=== PATIENT | female | born 1990 ===

== ENCOUNTER 2017-08-31 01:17 | Emergency (ER) | payer MEDICAID, OTHER ==
[2017-08-31 07:09] VITALS: BP 129/80; PULSE 67; RESP 16; TEMP 98.7
--- NOTE | 2017-08-31 07:40 | OBDCSUM ---
Datetime: 08/31/2017 02:20 Discharged to, Provider: Home Follow up at, Provider: [facility] Disch Instr Activity: Normal activity Disch Instr Diet: Regular Discharge Instructions, Provider: Routine instructions given Discharge Diagnosis, Provider: False Labor - Undelivered Discharge Time: 08/31/2017 02:26 Follow up in weeks, Provider: 09/02/2017 Disch Referrals: None Contraception discussed, Prov: Yes Disch Activity Restrictions: No lifting
--- NOTE | 2017-08-31 07:41 | OBHP ---
Datetime: 08/31/2017 02:23 IP Adm Impression: Term, intrauterine IP Admit Plan: Discharge home Admit Comment, IP Provider: 26 yo at 37.6 weeks confirmed by u/s at 12.1w, with an DALI of 09/15 presents to [facility] with complaints of sporadic abdominal and back pain, crampy in nature with cramp s occurring every 15 minutes. Denies vaginal bleeding, loss of fluid, regular contractions. Feels fet us moving. Last sexual activity 2 days ago. Denies any problems with this . Past OBhx: none; . Past medical hx: denies Past surg hx: denies Social hx: denies tobacco, alcohol, drug use Meds: vitamins Allergies: NKDA care: [facility]. Last visit 08/26. Next visit 09/02. ROS: denies chest pain, shortness of breath, nausea, vomiting, diarrhea, GI upset, headache, dizzi ness. PE: BP: 138/85. HR 76. FHR: 125 General: AAOx3, not in acute distress CV: S1,S2, regular rate and rhythm Abd: gravid, +BS Back: negative for CVA tenderness bilaterally Extremities: no edema, no pain on palpation Pelvic exam: cervix long, thick, closed Assessment: 26 yo with IUP at 37.6 weeks. No specific contractions seen on monitor. Not in ac tive labor at this time. Reassuring FHR. Plan: Discharge home with labor precautions- explained to pt to return to hospital if there is vaginal b leeding, loss of fluid, decreased movement, or contractions that occur closer together and are stronger. Pt strongly encouraged to attend next scheduled clinic appointment. [id number] Addendum by Dr. Richmond: Tonjan evaluated independently and I agree with the above. Patient is a @ 37.6 wks with abdominal contractions, no vaginal bleeding, no leaking, +FM. Patient has no antep artum issues, no medical problems. Closed on exam, [id number] Cat-I, valerie q 8 mins. Patient ruled out for early labor, no other pertinent positive symptoms. Dischraged home with labor precautions Pelvic Type - PN: Not Done Extremities - PN: Normal Abdomen - PN: Normal Back - PN: Normal Breast - PN: Not Done Lungs - PN: Normal Heart - PN: Normal Thyroid - PN: Not Done Neurologic - PN: Normal HEENT - PN: Normal General - PN: Normal FHR - Baseline A Provider: 125 Comments, ACOG Physical Exam: cervix closed, thick. Gestation - Est Wks by US: 37.6 IP Hx Assessment: The History has been Reviewed and is Current EGA AdmitDate IP: 37.6 Vital Signs Provider: Reviewed; Within Normal Limits IP Chief Complaint: Uterine contractions NICHD Variability Prov Fetus A: Moderate 6-25bpm NICHD Accel Fetus A IP Provider: [id number] FHR Category Provider Fetus A: Category I NICHD Decel Fetus A IP Provider: None Dilatation, Provider: 0 Genitourinary Exam: Normal DTRs - PN: Not Done
== END 2017-08-31 02:30 | disposition home or self-care (01) ==
LOC: H.EROB2 01:17
DX: O47.1 False labor at or after 37 completed weeks of gestation (principal); Z3A.37 37 weeks gestation of pregnancy

== ENCOUNTER 2017-09-17 17:13 | Emergency (ER) | payer MEDICAID, OTHER ==
--- NOTE | 2017-09-17 19:13 | OBHP ---
Datetime: 09/17/2017 19:02 IP Adm Impression: Term, intrauterine IP Admit Plan: Observation/Evaluation; Discharge home Admit Comment, IP Provider: Patient is a @ 40.2 wks with pain. Patient denies VB, leaking, +FM, +ctxns. Patient denies any other complaints. VE= /-3. FHR= 125 mod jonah, +accels, no decels. TOCO = no contractions. Patient ruled out for labor. Labor precautions given, F/U in clinic 09/20 Pelvic Type - PN: Adequate Extremities - PN: Normal Abdomen - PN: Normal Back - PN: Normal Breast - PN: Normal Lungs - PN: Normal Heart - PN: Normal Thyroid - PN: Normal Neurologic - PN: Normal HEENT - PN: Normal General - PN: Normal FHR - Baseline A Provider: 125 Contraction Comments Provider: no contractions EGA AdmitDate IP: 40.2 Vital Signs Provider: Reviewed; Within Normal Limits IP Chief Complaint: Uterine contractions NICHD Variability Prov Fetus A: Moderate 6-25bpm NICHD Accel Fetus A IP Provider: [id number] NICHD Decel Fetus A IP Provider: None Dilatation, Provider: 1 Effacement, Provider: 50 Station, Provider: -3 Genitourinary Exam: Normal DTRs - PN: Normal
--- NOTE | 2017-09-17 19:15 | OBDCSUM ---
Datetime: 09/17/2017 18:19 Discharged to, Provider: Home Follow up at, Provider: [facility] Disch Instr Activity: Normal activity Disch Instr Diet: Regular Discharge Time: 09/17/2017 18:19 Follow up in weeks, Provider: 09/20/17 Disch Referrals: None Discharge Comment, Provider: return to hospital if increased bleeding, pain, leaking Discharge Diagnosis Prov Other: false labor
[2017-09-17 22:36] VITALS: BP 117/73; PULSE 73
== END 2017-09-17 18:34 | disposition home or self-care (01) ==
LOC: H.EROB2 17:13
DX: O47.1 False labor at or after 37 completed weeks of gestation (principal); O48.0 Post-term pregnancy; Z3A.40 40 weeks gestation of pregnancy